=== PATIENT | female | born 2000 | race Hispanic/Latino ===

== ENCOUNTER 2023-01-03 01:40 | Emergency (ER) | payer MEDICAID, OTHER, SELFPAY ==
[2023-01-03] MEDS ORDERED: fentaNYL 50 mcg/mL 1 mL Vial ONE ×2 (01:46→02:18)
[2023-01-03] MEDS ORDERED: CEFAZOLIN 1 GM VIAL ONE (01:46)
[2023-01-03] MEDS ORDERED: Boostrix 0.5 ML (Tdap) VIAL (>/=7 yrs of age) ONE (01:46)
[2023-01-03] MEDS ORDERED: Lactated Ringer's 1,000 ML ONE (01:46)
[2023-01-03] MEDS ORDERED: Sodium Chloride 0.9% 100 ML ONE (01:47)
[2023-01-03 01:58] LABS: BHCG - Serum Negative (NEGATIVE); Pregs Control Bar Appear? YES (CONTROL BAR)
[2023-01-03 01:59] LABS: #Lymphocytes 3.4 thou/uL (1.20-3.40); #Neutrophils 9.5 thou/uL (1.40-6.50); %Eosinophils 0.7 % (0.0-10.0); %Lymphocytes 24.3 % (21.0-51.0); %Monocytes 5.2 % (0.0-10.0); %Neutrophils 68.8 % (42.0-75.0); Hematocrit 29.1 % (36.0-47.0); Hemoglobin 8.8 g/dL (12.0-16.0); INR-International Normal Ratio 1.3; Mean Corpuscular HGB CONC 30.1 g/dL (32.0-36.0); Mean Corpuscular Hemoglobin 20.7 pg (27.0-31.0); Mean Corpuscular Volume 68.7 fl (78.0-98.0); Mean Platelet Volume 7.3 fL (7.4-10.4); Platelet Count 335 10x3/uL (130-400); Prothrombin Time 16.3 sec (12.0-14.7); RBC Distribution Width 19.2 % (11.5-14.5); Red Blood Cell (RBC) Count 4.24 mill/uL (4.20-5.40); White Blood Cell (WBC) Count 13.8 10x3/uL (4.8-10.8)
[2023-01-03 02:00] LABS: #Basophils 0.1 thou/uL (0.0-0.2); #Eosinphils 0.1 thou/uL (0.0-0.7); #Monocytes 0.7 thou/uL (0.11-0.59); PTT 27.1 sec (22.9-36.1)
[2023-01-03 02:08] LABS: ALT (SGPT) 156 U/L (8-55); AST (SGOT) 237 U/L (5-34); Albumin 4.4 g/dL (3.5-5.0); Alkaline Phosphatase 90 U/L (40-110); Anion Gap 19 mmol/L (10-20); BUN (Urea Nitrogen) 15 mg/dL (7.0-18.7); Bilirubin, Total 0.2 mg/dL (0.2-1.2); Calc. Creatinine Clearance 0 mL/min (70-130); Calcium 8.8 mg/dL (7.8-10.44); Carbon Dioxide 15 mmol/L (22-29); Chloride 106 mmol/L (98-107); Estimated GFR 100; Globulin 3.3 g/dL (2.4-3.5); Glucose 162 mg/dL (70-105); Protein, Total 7.7 g/dL (6.0-8.3); Sodium 138 mmol/L (136-145)
[2023-01-03 02:25] LABS: Potassium 2.4 mmol/L (3.5-5.1)
[2023-01-03 02:29] LABS: Bilirubin Negative (Negative); Blood, Urine Moderate (Negative); Clarity Clear (Clear); Glucose, Urine (Dipstick) Negative (Negative); Ketone, Urine Negative (Negative); Leukocyte Negative (Negative); Nitrite Negative (Negative); Protein, Urine (Dipstick) > or equal to 300 mg/dL (Neg-Trace); Urobilinogen 0.2 mg/dL (Less than 2)
[2023-01-03 02:30] LABS: Pregnancy Test - Urine (BHCG) Negative (Negative); Pregu Control Background? CLEAR/WHITE (CLR/WHITE); Pregu Control Bar Appear? YES (CONTROL BAR); Specific Gravity 1.032 (1.002-1.036)
[2023-01-03] MEDS ORDERED: NS 0.9% w/ 20 MEQ KCL 1,000 ML ONE (02:31)
[2023-01-03] MEDS ORDERED: Tranexamic Acid 1,000 MG/10 ML VIAL ONE (02:31)
[2023-01-03 02:32] LABS: RBC/HPF None Seen HPF (0-3)
[2023-01-03 02:33] LABS: Bacteria/HPF None Seen HPF (None Seen); CAUTI Indications for Culture Spinal Cord Injury; Squamous Epithelial None Seen HPF (0-3); Urine Culture Reflex No No; WBC/HPF None Seen HPF (0-3)
[2023-01-03 02:40] LABS: Amphetamine Not Detected (NotDetected); Barbiturates Screen Not Detected (NotDetected); Benzodiazepine Screen Not Detected (NotDetected); Cocaine Metabolite Screen Not Detected (NotDetected); Methadone Not Detected (NotDetected); Methamphetamine Not Detected (NotDetected); Opiate Screen Not Detected (NotDetected); Oxycodone Screen Not Detected (NotDetected); Phencyclidine (PCP) Not Detected (NotDetected); THC/Cannabinoid Screen Detected (NotDetected); Tricyclic Screen Not Detected (NotDetected)
[2023-01-03] MEDS ORDERED: Ondansetron PF 4 MG/2 ML Vial ONE (03:00)
[2023-01-03] MEDS ORDERED: Iopamidol 370 76% 100 ML VIAL ONE (09:00)
== END 2023-01-03 03:00 | disposition short-term general hospital (02) ==
LOC: NAV ERS 01:40
DX: S36.113A Laceration of liver, unspecified degree, initial encounter (principal); S31.030A Puncture wound without foreign body of lower back and pelvis without penetration into retroperitoneum, initial encounter; J94.2 Hemothorax; G82.20 Paraplegia, unspecified; X58.XXXA Exposure to other specified factors, initial encounter
CPT/HCPCS: 36430; 51702; 71260; 74177; 80053; 80306; 81025; 83605; 84703; 85025; 85610; 85730; 86850; 86900; 86901; 90471; 90715; 93005; 96365; 96367; 96375; J0690; J2405; J3010; J3480; J7120; P9016; Q9967